=== PATIENT | male | born 1950 | race Caucasian/White ===

== ENCOUNTER 2018-07-14 08:05 | Day surgery (SDC) | payer MEDICARE, OTHER ==
[~2018-07-14 08:05] MED LIST: ACETAMINOPHEN 1,000 MG/100 ML BTL IV ONE
[2018-07-14] MEDS ORDERED: LIDOCAINE 2% MDV (20MG/ML) 20ML VIAL IV ONE (08:06)
[2018-07-14] MEDS ORDERED: SEVOFLURANE 250 ML INH ONE (08:06)
[2018-07-14] MEDS ORDERED: BUPIVACAINE 0.25% W/EPI MPF 30ML VIAL IVP ONE (08:06)
[2018-07-14] MEDS ORDERED: PROPOFOL 10 MG/ML VIAL IV ONE (08:06)
[2018-07-14] MEDS ORDERED: KETOROLAC 30 MG/ML VIAL IVP ONE (08:06)
[2018-07-14] MEDS ORDERED: ONDANSETRON HCL IV 4 MG/2 ML VIAL IVP ONE (08:06)
[2018-07-14] MEDS ORDERED: MIDAZOLAM HCL 2MG/2ML VIAL IV ONE (08:06)
[2018-07-14] MEDS ORDERED: FENTANYL PF 100MCG/2ML VIAL IV ONE (08:06)
[2018-07-14 08:26] LABS: BASO % 0.7 % (0-6); EOS % 2.6 % (0-6); GRAN % 52.3 % (47-80); HEMATOCRIT 42.6 % (42.0-52.0); HEMOGLOBIN 14.7 gm/dl (14.0-18.0); LYMPH % 35.6 % (16-45); MEAN CELL VOLUME 89.9 fl (81-97); MEAN CORPUSCULAR HGB CONC 34.5 g/dl (32-36); MEAN PLATELET VOLUME 9.2 fl (7.4-10.4); MONO % 8.8 % (0-9); PLATELET COUNT 186 K/uL (130-400); RED BLOOD COUNT 4.74 M/uL (4.40-5.70); RED CELL DISTRIBUTION WIDTH 13.7 % (11.5-14.5); WHITE BLOOD COUNT W/O DIFF 5.7 K/uL (4.2-12.2)
[2018-07-14 08:46] LABS: BLOOD UREA NITROGEN 27 mg/dL (8-23); CREATININE 0.9 mg/dL (0.7-1.2); EST GLOMERULAR FILTRATION RATE > 60 mL/min; GLUCOSE,RANDOM 83 mg/dL (74-109)
--- NOTE | 2018-07-15 10:30 | Operative Note ---
DATE OF SURGERY: 07/14/2018 Surgeon: Thierno Cortes DO PREOPERATIVE DIAGNOSIS: Torn medial meniscus of the left knee. POSTOPERATIVE DIAGNOSES: 1. Torn medial meniscus of the left knee. 2. Partial tear of anterior cruciate ligament, left knee. 3. Medial mid patella plica, left knee. 4. Synovitis, left knee. 5. Chondromalacia of the patellofemoral joint, medial femoral condyle, and lateral tibial plateau. OPERATION: 1. Arthroscopic partial medial meniscectomy, left knee. 2. Arthroscopic debridement anterior cruciate ligament, left knee. 3. Arthroscopic partial synovectomy, left knee. 4. Arthroscopic medial mid patella plica resection, left knee. 5. Arthroscopic chondroplasty of the medial femoral condyle and lateral tibial plateau. DESCRIPTION OF PROCEDURE: This 67-year-old male was taken to the operating room and placed in the supine position on the operating room table where general anesthesia was induced. The left lower extremity was elevated, exsanguinated, and the tourniquet inflated to 300 mmHg. Arthroscopic knee hollis applied. Left knee prepped with Hibiclens and draped in the usual sterile fashion. An inferolateral portal was established for the 4 mm arthroscope, and initial evaluation of the joint demonstrated normal appearance of the suprapatellar pouch but there was a medial mid patellar plica, which was resected using the rotating shaver through the inferomedial portal. The patient also demonstrated grade 2 chondromalacia of the patella and the trochlea but there was no grossly unstable articular cartilage and it was not further disturbed. The medial compartment was entered, and a complex tear of the medial meniscus was present with a large flap tear with horizontal cleavage components. This was resected. The apex of the tear being at approximately the 10:30 to 11-o'clock position. We resected back to the apex of the tear which was approximately 3 mm from the meniscosynovial junction and tapered in each direction to restore stability to the meniscus. The tear extended from about the 9-o'clock position all the way around to about the 1:30 position. There was also seen to be some mild chondromalacia of the medial femoral condyle but it was not grossly unstable. The patient did demonstrate fraying and partial tearing of the anterior cruciate ligament graft. This was debrided with the rotating shaver. There were some posterolateral fibers still intact, and this was not resected. The medial compartment was entered, and some fraying of the articular cartilage of the tibial plateau was present. This was debrided slightly with the rotating shaver. The lateral meniscus was probed as well as the lateral femoral condyle and found to be normal. The joint was copiously irrigated with lactated Ringer's solution. It was suctioned. The instruments were removed. The portals infiltrated with 0.25% Marcaine with epinephrine. Sterile dressings applied. Tourniquet and knee hollis released, and the patient taken to the recovery room in satisfactory condition. GROSS PATHOLOGY: This patient demonstrated a complex tear of the medial meniscus as well as a partial tear of the anterior cruciate ligament representing at least 50% of the fibers. There was a medial mid patella plica and synovitis and grade 2 chondromalacia of the medial femoral condyle, lateral tibial plateau, and patellofemoral articulation. CC: Karlo NAVARRO
== END 2018-07-14 10:50 | disposition home or self-care (01) ==
LOC: SUR 08:05
PROVIDERS: ATTEND Orthopaedic Surgery
DX: S83.232A Complex tear of medial meniscus, current injury, left knee, initial encounter (principal); S83.512A Sprain of anterior cruciate ligament of left knee, initial encounter; M67.52 Plica syndrome, left knee; M65.9 Synovitis and tenosynovitis, unspecified; M94.262 Chondromalacia, left knee; E03.9 Hypothyroidism, unspecified
CPT/HCPCS: 29881; 29875; 01400; 85025; 80048; J1885; J2405; J3010